=== PATIENT | male | born 1955 | race Caucasian/White ===

== ENCOUNTER → 2016-07-18 | Outpatient (CLI) | payer MEDICARE | DX: R94.5 Abnormal results of liver function studies (principal); Z91.041 Radiographic dye allergy status; Z88.6 Allergy status to analgesic agent | CPT/HCPCS: 76705 ==

== ENCOUNTER 2021-05-09 17:22 | Emergency (ER) | payer MEDICARE | END 2021-05-09 20:30 | disposition left against medical advice (07) | LOC: ER1 17:22 | DX: Z53.21 Procedure and treatment not carried out due to patient leaving prior to being seen by health care provider (principal) ==

== ENCOUNTER → 2021-05-10 | Outpatient (CLI) | payer MEDICARE ==
[~2021-05-10] MED LIST: ASPIRIN81 MG PO; CLOPIDOGREL75 MG PO; HUMALOG100 UNIT/3 SC; LISINOPRIL10 MG PO; LOPRESSOR 25 MG25 MG PO; PROTONIX 40 MG40 M1 PO; SIMVASTATIN20 MG PO; TRADJENTA5 MG PO; TRESIBA FL100 UNIT/1 SQ
== END ==
LOC: KOH-I 11:34
DX: R05.9 Cough, unspecified (principal); R06.2 Wheezing; R50.9 Fever, unspecified; R06.02 Shortness of breath; J20.9 Acute bronchitis, unspecified; J92.9 Pleural plaque without asbestos
CPT/HCPCS: 71046

== ENCOUNTER 2021-05-11 11:14 | Inpatient (IN) | payer MEDICARE, MEDICAID ==
[~2021-05-11] VITALS: Ht 175.3 cm; Wt 108.7 kg
[2021-05-11 13:18] LABS: HEMOGLOBIN 15.7 gm/dl (14.0-17.5); RED BLOOD COUNT 4.93 M/UL (4.20-5.50); WHITE BLOOD COUNT 5.1 K/UL (4.5-11.0)
[2021-05-11 14:04] LABS: BUN/CREATININE RATIO 16 (0-10)
[2021-05-11] MEDS ORDERED: CLOPIDOGREL75 MG PO (16:57)
[2021-05-11] MEDS ORDERED: ASPIRIN81 MG PO (16:58)
[2021-05-11] MEDS ORDERED: LISINOPRIL10 MG PO (16:59)
[2021-05-11] MEDS ORDERED: PROTONIX 40 MG40 M1 PO (16:59)
[2021-05-11] MEDS ORDERED: LOPRESSOR 25 MG25 MG PO (16:59)
[2021-05-11] MEDS ORDERED: TRADJENTA5 MG PO (17:00)
[2021-05-11] MEDS ORDERED: SIMVASTATIN20 MG PO (17:00)
[2021-05-11] MEDS ORDERED: HUMALOG100 UNIT/3 SC (17:02)
[2021-05-11] MEDS ORDERED: TRESIBA FL100 UNIT/1 SQ (17:03)
[2021-05-12 00:39] LABS: RED BLOOD COUNT 4.65 M/UL (4.20-5.50); WHITE BLOOD COUNT 2.9 K/UL (4.5-11.0)
[2021-05-12 01:06] LABS: BUN/CREATININE RATIO 18 (0-10)
[2021-05-13 03:42] LABS: HEMOGLOBIN 15.2 gm/dl (14.0-17.5); RED BLOOD COUNT 4.76 M/UL (4.20-5.50)
[2021-05-13 03:44] LABS: WHITE BLOOD COUNT 5.2 K/UL (4.5-11.0)
[2021-05-13 04:16] LABS: BUN/CREATININE RATIO 24 (0-10)
[2021-05-14 05:03] LABS: RED BLOOD COUNT 4.76 M/UL (4.20-5.50); WHITE BLOOD COUNT 6.3 K/UL (4.5-11.0)
[2021-05-14 05:22] LABS: BUN/CREATININE RATIO 25 (0-10)
[2021-05-15 05:45] LABS: HEMOGLOBIN 15.7 gm/dl (14.0-17.5); RED BLOOD COUNT 4.93 M/UL (4.20-5.50); WHITE BLOOD COUNT 6.6 K/UL (4.5-11.0)
[2021-05-15 06:15] LABS: BUN/CREATININE RATIO 29 (0-10)
[2021-05-16 04:55] LABS: HEMOGLOBIN 16.3 gm/dl (14.0-17.5); RED BLOOD COUNT 5.08 M/UL (4.20-5.50)
[2021-05-16 04:59] LABS: WHITE BLOOD COUNT 9.5 K/UL (4.5-11.0)
[2021-05-16 05:16] LABS: BUN/CREATININE RATIO 30 (0-10)
[2021-05-17 05:40] LABS: HEMOGLOBIN 16.7 gm/dl (14.0-17.5); RED BLOOD COUNT 5.27 M/UL (4.20-5.50)
[2021-05-17 05:41] LABS: WHITE BLOOD COUNT 12.5 K/UL (4.5-11.0)
[2021-05-17 05:57] LABS: BUN/CREATININE RATIO 26 (0-10)
[2021-05-18 06:05] LABS: BUN/CREATININE RATIO 25 (0-10)
[2021-05-18 10:47] LABS: HEMOGLOBIN 18.1 gm/dl (14.0-17.5); WHITE BLOOD COUNT 15.1 K/UL (4.5-11.0)
[2021-05-19 04:43] LABS: HEMOGLOBIN 17.7 gm/dl (14.0-17.5); RED BLOOD COUNT 5.55 M/UL (4.20-5.50); WHITE BLOOD COUNT 12.1 K/UL (4.5-11.0)
[2021-05-19 05:17] LABS: BUN/CREATININE RATIO 23 (0-10)
[2021-05-19 07:27] LABS: ACINETOBACTER BAUMANNII Not Detected (Negative); CANDIDA ALBICANS Not Detected (Negative); CANDIDA KRUSEI Not Detected (Negative); CANDIDA TROPICALIS Not Detected (Negative); ENTEROCOCCUS Not Detected (Negative); ESCHERICHIA COLI Not Detected (Negative); HAEMOPHILUS INFLUENZAE Not Detected (Negative); KLEBSIELLA OXYTOCA Not Detected (Negative); KLEBSIELLA PNEUMONIAE Not Detected (Negative); KPC-CARBAPENEM-RESISTANCE GENE Not Detected (Negative); PROTEUS Not Detected (Negative); PSEUDOMONAS AERUGINOSA Not Detected (Negative); SERRATIA MARCESANS Not Detected (Negative); STAPHYLOCOCCUS AUREUS Not Detected (Negative); STREP AGALACTIAE (GROUP B) Not Detected (Negative); STREP PYOGENES (GROUP A) Not Detected (Negative); STREPTOCOCCUS Not Detected (Negative); vanA/B (VANCOMYCIN RESIST GENE Not Detected (Negative)
[2021-05-19 08:51] LABS: STAPHYLOCOCCUS DETECTED (Negative); mecA (METHICILLIN RESIST GENE DETECTED (Negative)
[2021-05-20 05:34] LABS: HEMOGLOBIN 17.1 gm/dl (14.0-17.5); RED BLOOD COUNT 5.48 M/UL (4.20-5.50)
[2021-05-20 05:35] LABS: WHITE BLOOD COUNT 17.8 K/UL (4.5-11.0)
[2021-05-21 04:24] LABS: HEMOGLOBIN 15.8 gm/dl (14.0-17.5); RED BLOOD COUNT 4.94 M/UL (4.20-5.50); WHITE BLOOD COUNT 15.4 K/UL (4.5-11.0)
[2021-05-21 09:31] LABS: BUN/CREATININE RATIO 33 (0-10)
[2021-05-22 04:27] LABS: HEMOGLOBIN 14.6 gm/dl (14.0-17.5); RED BLOOD COUNT 4.84 M/UL (4.20-5.50)
[2021-05-22 04:28] LABS: WHITE BLOOD COUNT 10.5 K/UL (4.5-11.0)
[2021-05-22 04:44] LABS: BUN/CREATININE RATIO 43 (0-10)
[2021-05-23 05:12] LABS: HEMOGLOBIN 15.1 gm/dl (14.0-17.5); RED BLOOD COUNT 4.98 M/UL (4.20-5.50); WHITE BLOOD COUNT 12.4 K/UL (4.5-11.0)
[2021-05-23 05:43] LABS: BUN/CREATININE RATIO 51 (0-10)
[2021-05-24 05:48] LABS: HEMOGLOBIN 15.1 gm/dl (14.0-17.5); RED BLOOD COUNT 4.96 M/UL (4.20-5.50); WHITE BLOOD COUNT 15.4 K/UL (4.5-11.0)
[2021-05-24 06:08] LABS: BUN/CREATININE RATIO 49 (0-10)
[2021-05-25 05:51] LABS: HEMOGLOBIN 14.8 gm/dl (14.0-17.5); RED BLOOD COUNT 4.74 M/UL (4.20-5.50); WHITE BLOOD COUNT 18.9 K/UL (4.5-11.0)
[2021-05-25 06:36] LABS: BUN/CREATININE RATIO 48 (0-10)
[2021-05-26 05:29] LABS: HEMOGLOBIN 15.3 gm/dl (14.0-17.5); RED BLOOD COUNT 4.98 M/UL (4.20-5.50)
[2021-05-26 05:31] LABS: WHITE BLOOD COUNT 12.1 K/UL (4.5-11.0)
[2021-05-26 05:51] LABS: BUN/CREATININE RATIO 61 (0-10)
[2021-05-27 05:49] LABS: HEMOGLOBIN 15.7 gm/dl (14.0-17.5); RED BLOOD COUNT 4.99 M/UL (4.20-5.50); WHITE BLOOD COUNT 12.2 K/UL (4.5-11.0)
[2021-05-27 06:08] LABS: BUN/CREATININE RATIO 53 (0-10)
[2021-05-28 06:06] LABS: HEMOGLOBIN 14.8 gm/dl (14.0-17.5); RED BLOOD COUNT 4.81 M/UL (4.20-5.50); WHITE BLOOD COUNT 11.7 K/UL (4.5-11.0)
[2021-05-28 06:46] LABS: BUN/CREATININE RATIO 64 (0-10)
[2021-05-29 05:30] LABS: HEMOGLOBIN 15.9 gm/dl (14.0-17.5); RED BLOOD COUNT 5.22 M/UL (4.20-5.50)
[2021-05-29 05:31] LABS: WHITE BLOOD COUNT 22.6 K/UL (4.5-11.0)
[2021-05-29 05:43] LABS: BUN/CREATININE RATIO 49 (0-10)
[2021-05-30 05:10] LABS: HEMOGLOBIN 15.7 gm/dl (14.0-17.5); RED BLOOD COUNT 5.16 M/UL (4.20-5.50)
[2021-05-30 05:40] LABS: BUN/CREATININE RATIO 41 (0-10)
[2021-05-30 18:33] LABS: HEMOGLOBIN 16.5 gm/dl (14.0-17.5); RED BLOOD COUNT 5.15 M/UL (4.20-5.50); WHITE BLOOD COUNT 22.7 K/UL (4.5-11.0)
[2021-05-30 18:47] LABS: BUN/CREATININE RATIO 54 (0-10)
[2021-05-31 05:07] LABS: HEMOGLOBIN 15.8 gm/dl (14.0-17.5); RED BLOOD COUNT 5.18 M/UL (4.20-5.50)
[2021-05-31 05:25] LABS: BUN/CREATININE RATIO 71 (0-10)
[2021-06-01 06:50] LABS: WHITE BLOOD COUNT 18.9 K/UL (4.5-11.0)
[2021-06-01 06:51] LABS: HEMOGLOBIN 18.6 gm/dl (14.0-17.5); RED BLOOD COUNT 5.88 M/UL (4.20-5.50)
[2021-06-01 07:17] LABS: BUN/CREATININE RATIO 68 (0-10)
[2021-06-02 04:51] LABS: HEMOGLOBIN 18.1 gm/dl (14.0-17.5); RED BLOOD COUNT 5.82 M/UL (4.20-5.50); WHITE BLOOD COUNT 18.3 K/UL (4.5-11.0)
[2021-06-02 05:53] LABS: BUN/CREATININE RATIO 78 (0-10)
[2021-06-03 05:37] LABS: HEMOGLOBIN 16.3 gm/dl (14.0-17.5); WHITE BLOOD COUNT 15.6 K/UL (4.5-11.0)
[2021-06-03 05:58] LABS: RED BLOOD COUNT 5.2 M/UL (4.20-5.50)
[2021-06-03 06:23] LABS: BUN/CREATININE RATIO 73 (0-10)
[2021-06-04 08:58] LABS: HEMOGLOBIN 17.5 gm/dl (14.0-17.5); RED BLOOD COUNT 5.51 M/UL (4.20-5.50); WHITE BLOOD COUNT 19.1 K/UL (4.5-11.0)
[2021-06-04 09:39] LABS: BUN/CREATININE RATIO 76 (0-10)
[2021-06-05 08:05] LABS: WHITE BLOOD COUNT 14.6 K/UL (4.5-11.0)
[2021-06-05 08:09] LABS: HEMOGLOBIN 15.1 gm/dl (14.0-17.5); RED BLOOD COUNT 4.89 M/UL (4.20-5.50)
[2021-06-05 08:31] LABS: BUN/CREATININE RATIO 71 (0-10)
[2021-06-06 05:30] LABS: HEMOGLOBIN 14.9 gm/dl (14.0-17.5); RED BLOOD COUNT 4.68 M/UL (4.20-5.50)
[2021-06-06 05:51] LABS: BUN/CREATININE RATIO 72 (0-10)
[2021-06-07 05:34] LABS: HEMOGLOBIN 16.4 gm/dl (14.0-17.5); WHITE BLOOD COUNT 12.8 K/UL (4.5-11.0)
[2021-06-07 05:35] LABS: RED BLOOD COUNT 5.23 M/UL (4.20-5.50)
[2021-06-07 08:48] LABS: BUN/CREATININE RATIO 74 (0-10)
[2021-06-08 06:01] LABS: RED BLOOD COUNT 4.84 M/UL (4.20-5.50); WHITE BLOOD COUNT 11.6 K/UL (4.5-11.0)
[2021-06-08 07:58] LABS: BUN/CREATININE RATIO 58 (0-10)
[2021-06-09 02:24] LABS: HEMOGLOBIN 14.2 gm/dl (14.0-17.5); RED BLOOD COUNT 4.58 M/UL (4.20-5.50); WHITE BLOOD COUNT 8.8 K/UL (4.5-11.0)
[2021-06-09 03:14] LABS: BUN/CREATININE RATIO 66 (0-10)
[2021-06-10 02:54] LABS: HEMOGLOBIN 14.8 gm/dl (14.0-17.5); RED BLOOD COUNT 4.82 M/UL (4.20-5.50)
[2021-06-10 02:59] LABS: WHITE BLOOD COUNT 11.1 K/UL (4.5-11.0)
[2021-06-10 03:15] LABS: BUN/CREATININE RATIO 65 (0-10)
[2021-06-11 07:12] LABS: RED BLOOD COUNT 5.25 M/UL (4.20-5.50)
[2021-06-11 07:15] LABS: WHITE BLOOD COUNT 17.1 K/UL (4.5-11.0)
[2021-06-11 07:37] LABS: BUN/CREATININE RATIO 55 (0-10)
[2021-06-12 03:06] LABS: HEMOGLOBIN 15.7 gm/dl (14.0-17.5); RED BLOOD COUNT 5.03 M/UL (4.20-5.50); WHITE BLOOD COUNT 14.9 K/UL (4.5-11.0)
[2021-06-12 03:17] LABS: BUN/CREATININE RATIO 46 (0-10)
[2021-06-13 03:28] LABS: RED BLOOD COUNT 4.51 M/UL (4.20-5.50); WHITE BLOOD COUNT 19.7 K/UL (4.5-11.0)
[2021-06-13 03:38] LABS: BUN/CREATININE RATIO 52 (0-10)
[2021-06-14 03:04] LABS: HEMOGLOBIN 14.7 gm/dl (14.0-17.5); RED BLOOD COUNT 4.74 M/UL (4.20-5.50)
[2021-06-14 03:27] LABS: BUN/CREATININE RATIO 49 (0-10)
[2021-06-15 02:41] LABS: WHITE BLOOD COUNT 18.8 K/UL (4.5-11.0)
[2021-06-15 02:43] LABS: RED BLOOD COUNT 4.23 M/UL (4.20-5.50)
[2021-06-15 03:33] LABS: BUN/CREATININE RATIO 56 (0-10)
[2021-06-16 03:35] LABS: HEMOGLOBIN 12.4 gm/dl (14.0-17.5); RED BLOOD COUNT 4.04 M/UL (4.20-5.50); WHITE BLOOD COUNT 17.4 K/UL (4.5-11.0)
[2021-06-16 06:52] LABS: BUN/CREATININE RATIO 71 (0-10)
[2021-06-17 03:35] LABS: HEMOGLOBIN 11.1 gm/dl (14.0-17.5); WHITE BLOOD COUNT 13.5 K/UL (4.5-11.0)
[2021-06-17 03:45] LABS: RED BLOOD COUNT 3.6 M/UL (4.20-5.50)
[2021-06-17 03:58] LABS: BUN/CREATININE RATIO 59 (0-10)
[2021-06-18 03:07] LABS: HEMOGLOBIN 10.5 gm/dl (14.0-17.5); RED BLOOD COUNT 3.42 M/UL (4.20-5.50); WHITE BLOOD COUNT 15.4 K/UL (4.5-11.0)
[2021-06-18 03:24] LABS: BUN/CREATININE RATIO 40 (0-10)
[2021-06-19 02:45] LABS: HEMOGLOBIN 11.5 gm/dl (14.0-17.5); RED BLOOD COUNT 3.75 M/UL (4.20-5.50); WHITE BLOOD COUNT 18.2 K/UL (4.5-11.0)
[2021-06-19 02:54] LABS: BUN/CREATININE RATIO 37 (0-10)
[2021-06-20 05:20] LABS: HEMOGLOBIN 11.3 gm/dl (14.0-17.5); RED BLOOD COUNT 3.65 M/UL (4.20-5.50); WHITE BLOOD COUNT 15.8 K/UL (4.5-11.0)
[2021-06-20 05:39] LABS: BUN/CREATININE RATIO 54 (0-10)
[2021-06-20] MEDS ORDERED: [UNRECOGNIZED DRUG - REMARK] (09:25)
[2021-06-20] MEDS ORDERED: LEVALBUTER1.25 MG/3 NEB (09:36)
[2021-06-21 03:42] LABS: HEMOGLOBIN 10.9 gm/dl (14.0-17.5); RED BLOOD COUNT 3.56 M/UL (4.20-5.50)
[2021-06-21 03:45] LABS: WHITE BLOOD COUNT 21.5 K/UL (4.5-11.0)
[2021-06-21 04:15] LABS: BUN/CREATININE RATIO 58 (0-10)
--- NOTE | 2021-06-21 04:52 | NUR ---
0400-NOTIFIED DR SYKES THAT PATIENT WASN'T RESPONDING TO STERNUM RUB PER RESPIRATORY. UPON ASSESSMENT OF PATIENT, HE WAS DROWSY AND WAS MOVING HIS HEAD SOME. DISCUSSED WITH FAMILY THAT PATIENT NEEDED TO BE PUT ON THE VENTILATOR AND HIS SAID SHE WANTED TO TALK TO HER DAUGHTER FIRST THAT HER DAUGHTER WAS ON HER WAY UP HERE. DR SYKES WAS NOTIFIED OF ABG RESULTS AND IT WAS DETERMINED THAT PATIENT NEEDED TO BE INTUBATED. FAMILY DISCUSSED WITH DR SYKES AT BEDSIDE AND STATED THEY DIDN'T WANT HIM INTUBATED RIGHT NOW THAT THEY WANTED HIM CHANGED TO A DNR STATUS UNTIL THEY COULD DISCUSS MORE WITH PULMONARY TODAY. PATIENT WAS STARTED ON LEVOPHED AND A 3RD 500CC BOLUS WAS GIVEN.
== END 2021-06-21 14:09 | disposition expired | DRG 720 ==
LOC: ER1 11:14 → PROG CARE 16:39 → CCU 16:39 → CDU 16:39 → MED SURG 4 05-12 11:18 → CCU 05-13 16:15 → PROG CARE 06-08 13:02 → CCU 06-19 21:02
PROVIDERS: Internal Medicine; Internal Medicine Infectious Disease; Internal Medicine Nephrology; Internal Medicine Pulmonary Disease; Physician Assistant; ADMIT Internal Medicine
PROC: 8E0ZXY6 Isolation (ICD-10-PCS; principal; 2021-05-11)
PROC: XW033E5 Introduction of Remdesivir Anti-infective into Peripheral Vein, Percutaneous Approach, New Technology Group 5 (ICD-10-PCS; 2021-05-11)
PROC: 3E0333Z Introduction of Anti-inflammatory into Peripheral Vein, Percutaneous Approach (ICD-10-PCS; 2021-05-11)
PROC: XW033H5 Introduction of Tocilizumab into Peripheral Vein, Percutaneous Approach, New Technology Group 5 (ICD-10-PCS; 2021-05-18)
PROC: 5A1955Z Respiratory Ventilation, Greater than 96 Consecutive Hours (ICD-10-PCS; 2021-05-19)
PROC: 0BH18EZ Insertion of Endotracheal Airway into Trachea, Via Natural or Artificial Opening Endoscopic (ICD-10-PCS; 2021-05-19)
PROC: 05HM33Z Insertion of Infusion Device into Right Internal Jugular Vein, Percutaneous Approach (ICD-10-PCS; 2021-05-19)
PROC: 3E033XZ Introduction of Vasopressor into Peripheral Vein, Percutaneous Approach (ICD-10-PCS; 2021-05-19)
PROC: 5A0955A Assistance with Respiratory Ventilation, Greater than 96 Consecutive Hours, High Flow/Velocity Cannula (ICD-10-PCS; 2021-05-25)
PROC: 5A0945A Assistance with Respiratory Ventilation, 24-96 Consecutive Hours, High Flow/Velocity Cannula (ICD-10-PCS; 2021-06-16)
PROC: 0DH63UZ Insertion of Feeding Device into Stomach, Percutaneous Approach (ICD-10-PCS; 2021-06-17)
PROC: 3E0G76Z Introduction of Nutritional Substance into Upper GI, Via Natural or Artificial Opening (ICD-10-PCS; 2021-06-17)
PROC: 5A09357 Assistance with Respiratory Ventilation, Less than 24 Consecutive Hours, Continuous Positive Airway Pressure (ICD-10-PCS; 2021-06-21)
DX: A41.1 Sepsis due to other specified staphylococcus (principal); U07.1 COVID-19; J12.82 Pneumonia due to coronavirus disease 2019; J80 Acute respiratory distress syndrome; I50.33 Acute on chronic diastolic (congestive) heart failure; R65.21 Severe sepsis with septic shock; G93.41 Metabolic encephalopathy; N17.9 Acute kidney failure, unspecified; E87.1 Hypo-osmolality and hyponatremia; E87.2 Acidosis; K92.2 Gastrointestinal hemorrhage, unspecified; E87.0 Hyperosmolality and hypernatremia; R04.2 Hemoptysis; I82.402 Acute embolism and thrombosis of unspecified deep veins of left lower extremity; E46 Unspecified protein-calorie malnutrition; Z66 Do not resuscitate; Z51.5 Encounter for palliative care; R91.1 Solitary pulmonary nodule; F41.9 Anxiety disorder, unspecified; E87.70 Fluid overload, unspecified; R31.9 Hematuria, unspecified; I25.10 Atherosclerotic heart disease of native coronary artery without angina pectoris; E11.65 Type 2 diabetes mellitus with hyperglycemia; L89.156 Pressure-induced deep tissue damage of sacral region; E87.6 Hypokalemia; G72.9 Myopathy, unspecified; I11.0 Hypertensive heart disease with heart failure; E87.5 Hyperkalemia; J60 Coalworker's pneumoconiosis; E66.9 Obesity, unspecified; D75.1 Secondary polycythemia; R53.81 Other malaise; R13.10 Dysphagia, unspecified; Z23 Encounter for immunization; F22 Delusional disorders; I49.3 Ventricular premature depolarization; E78.5 Hyperlipidemia, unspecified; Z83.3 Family history of diabetes mellitus; E86.9 Volume depletion, unspecified; Z79.4 Long term (current) use of insulin; Z79.82 Long term (current) use of aspirin; Z95.1 Presence of aortocoronary bypass graft; Z79.899 Other long term (current) drug therapy; Z90.49 Acquired absence of other specified parts of digestive tract; Z79.01 Long term (current) use of anticoagulants; Z83.6 Family history of other diseases of the respiratory system; L89.311 Pressure ulcer of right buttock, stage 1; L89.321 Pressure ulcer of left buttock, stage 1; Z68.35 Body mass index [BMI] 35.0-35.9, adult
CPT/HCPCS: ECHO; 31500; 36415; 36600; 70450; 71045; 71046; 71275; 74018; 80048; 80053; 80202; 81001; 82550; 82553; 82728; 82803; 82962; 83605; 83615; 83735; 83874; 83880; 84100; 84132; 84133; 84300; 84484; 85007; 85025; 85027; 85379; 85384; 85610; 85730; 86140; 87040; 87070; 87077; 87081; 87086; 87150; 87186; 87205; 92526; 92610; 93005; 93306; 93970; 93971; 94002; 94003; 94640; 94660; 94664; 94667; 94668; 94760; 96374; 97110; 97110-GP-CQ; 97162; 97164; 97167; 97530; 97530-GP-CQ; 99285; A6212; C9113; J0248; J0360; J0692; J0696; J0878; J1100; J1200; J1205; J1650; J1940; J1956; J2020; J2060; J2185; J2270; J2405; J2704; J3370; J3430; J3465; J3486; J7030; J7040; J7050; J7070; Q0249; Q9967; U0002